=== PATIENT | female | born 1995 ===

== ENCOUNTER 2023-03-17 21:50 | Outpatient (REF) | payer BC, SELFPAY ==
[2023-03-23 21:08] LABS: Age Gdln ACOG Testing Note (.); HPV Aptima Positive (Negative); HPV Genotype 16 Negative (Negative); HPV Genotype 18,45 Negative (Negative); IGP, Aptima HPV, rfx 16/18,45 Note (.)
== END 2023-03-17 21:51 | disposition home or self-care (01) ==
LOC: LAB 21:50
PROVIDERS: PCP Physician Assistant; Visit Provider Physician Assistant
DX: Z01.419 Encounter for gynecological examination (general) (routine) without abnormal findings (principal)
CPT/HCPCS: 87624; 87625; G0145